=== PATIENT | female | born 1960 | race Caucasian/White ===

== ENCOUNTER 2018-06-01 18:16 | Emergency (ER) | payer OTHER ==
[~2018-06-01] VITALS: Ht 172.7 cm; Wt 81.2 kg
[~2018-06-01 18:16] MED LIST: ASPI-630 PO; AZEL50GE2 TP; DOXY50SY PO; FLUT9.9S NS; GLUC1TAB26 PO; LEVO25TA4 PO; LEVO330T PO; NAPR125O4 PO; OLME1TAB35 PO; OMEG300C PO; OMEP10CA3 PO
--- NOTE | 2018-06-01 18:20 | ED.ADGEN ---
Past History Past Medical History: Arthritis, Fibromyalgia, Other Past Surgical History: Other Adult General Chief Complaint Chief Complaint " I am having neck spasms... and pain... It bashir started two days ago... I really did nothing to hurt it...I did have surgery 10 yrs ago... and they put a plate in... I ve been having arthritis problems or tendon problems in my other joints.. shoulders, carpal tunnel.. and had to have my toe nail removed.. I am just falling apart since about age 49... I cant take a lot of meds...".. " Can I get fixed enough to watch fireworks...?.. " Took an old flexeril I had from previous surgery...its not seemed to help much..." HPI HPI Patient is a 57 year old female who presents with above hx and complaints neck pain. Pt. complaints of bilateral cervical muscle and trapezius muscle spasms. Pt. rates pain as 9/ 10. Prior cervical surgery 10 yrs ago. Pt.denies trauma, fever, cancer. No problems with vacation or urination. Has had increased complaints and bilateral carpal tunnel sites. 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 Patient is right-hand dominant. DTRs +2 at brachial and patella. Patient is ambulatory without problems. Does have pain on flexion and extension of neck. No hx travel or specific ill contacts. Pt. normally follows at [facility]. Review of Systems Review of Systems Constitutional: Denies fever or chills [] Eyes: Denies change in visual acuity, redness, or eye pain [] HENT: Denies nasal congestion or sore throat [] Respiratory: Denies cough or shortness of breath [] Cardiovascular: No additional information not addressed in HPI [] GI: Denies abdominal pain, nausea, vomiting, bloody stools or diarrhea [] : Denies dysuria or hematuria [] Musculoskeletal: Hx. of neck pain, bilateral shoulder pain, bilateral wrist pain, ect. Integument: Denies rash or skin lesions [] Neurologic: Denies headache, focal weakness or sensory changes [] Endocrine: Denies polyuria or polydipsia [] All other systems were reviewed and found to be within normal limits, except as documented in this note. Family History Family History Non-contributory Current Medications Current Medications Current Medications Medications (Trade) Dose Ordered Sig/Carline Start Time Stop Time Status Last Admin Dose Admin Methylprednisolone Acetate (DEPO-Medrol IM) 40 mg 1X ONCE 06/01/18 18:45 06/01/18 18:47 DC 06/01/18 18:53 40 MG Morphine Sulfate (Morphine 10mg Syringe) 10 mg 1X ONCE 06/01/18 18:45 06/01/18 18:47 DC 06/01/18 18:54 10 MG Orphenadrine Citrate (Norflex) 60 mg 1X ONCE 06/01/18 18:45 06/01/18 18:47 DC 06/01/18 18:54 60 MG See Nursing for home meds. Allergies Allergies Allergies Coded Allergies Type Severity Reaction Last Updated Verified Sulfa (Sulfonamide Antibiotics) Allergy Intermediate 06/01/18 Yes acetaminophen Allergy Intermediate 06/01/18 Yes bacitracin Allergy Intermediate 06/01/18 Yes diphenhydramine Allergy Intermediate 06/01/18 Yes gabapentin Allergy Intermediate 06/01/18 Yes neomycin Allergy Intermediate 06/01/18 Yes oxycodone Allergy Intermediate 06/01/18 Yes polymyxin B Allergy Intermediate 06/01/18 Yes Physical Exam Physical Exam Constitutional: Moderately acute distress, non-toxic appearance. [] HENT: Normocephalic, atraumatic, bilateral external ears normal, oropharynx moist, no oral exudates, nose normal. [] Eyes: PERRLA, EOMI, conjunctiva normal, no discharge. [] Neck:Decreased range of motion,and cervical muscle tenderness, no adenopathy, no stridor. [] Wearing a soft cervical collar for comfort and support. Old surgical scars. No mid line tenderness. + spasms paraspinal and trapezius muscles. Cardiovascular:Heart rate regular rhythm, no murmur [] Lungs & Thorax: Bilateral breath sounds equal at apex on auscultation [] Abdomen: Bowel sounds normal, soft, no tenderness, no masses, no pulsatile masses. Scar. Skin: Warm, dry, no erythema, no rash. [] Back: No tenderness, no CVA tenderness. [] Extremities: No tenderness, no cyanosis, no clubbing, ROM intact, no edema. Wrist splint Rt.. Old surgical scars wrists. Rt. 1st one in bandage- toe nail removal. Bilateral scars shoulders. Neurologic: Alert and oriented X 3, no gross motor function & sensory function deficits, no new focal deficits noted. []DTR + 2 patella and brachial. No reported saddle loss. Lt thumb numbness ( old. ) Psychologic: Affect anxious., , judgement normal, mood normal. [] Current Patient Data Vital Signs Vital Signs Date Time Temp Pulse Resp B/P (MAP) Pulse Ox O2 Delivery O2 Flow Rate FiO2 06/01/18 19:15 61 20 147/86 (106) 95 Room Air 06/01/18 18:16 97.0 EKG EKG [] Radiology/Procedures Radiology/Procedures Deferred radiographic evaluation at this time. Will need an MRI or myelogram to definitively evaluate cervical impingement[]. We will defer on follow-up with neurology/neurosurgery. Course & Med Decision Making Course & Med Decision Making Pertinent Labs and Imaging studies reviewed. (See chart for details). Patient use gentle massage. Ice packs. Tylenol for pain. Marked pain may use tramadol. Marked spasms may use Ativan 1 mg up to 3 times a day. May also try Flexeril 10 mg up to 3 times a day. Must follow-up with neurosurgery. Most likely need a MRI or myelogram to evaluate for cervical impingement. Suspect progression of degenerative joint changes particularly in joints above and below previous laminectomy.. Will treat with a depo of Medrol as an anti- inflammatory. [] Final Impression Final Impression 1. Cervical neuropathy 2. Acute cervical spasm[] Dragon Disclaimer Dragon Disclaimer This electronic medical record was generated, in whole or in part, using a voice recognition dictation system. JACKY CASTAÑEDA MD Jun 01, 2018 18:20
[2018-06-01] MEDS ORDERED: MORPHINE SULFATE 10 MG/ML SYRINGE. SQ ONE (18:45)
[2018-06-01] MEDS ORDERED: ORPHENADRINE CITRATE 60 MG/2 ML VIAL. IM ONE (18:45)
[2018-06-01] MEDS ORDERED: methylPREDNISolone ACETATE 40 MG/ML VIAL. IM ONE (18:45)
[2018-06-01] MEDS ORDERED: TRAM1TAB4 PO (18:48)
[2018-06-01] MEDS ORDERED: CYCL-331 PO (18:48)
[2018-06-01] MEDS ORDERED: LORA-254 PO (19:05)
[2018-06-01 19:15] VITALS: BP 147/86
== END 2018-06-01 19:15 | disposition home or self-care (01) ==
LOC: ER 18:16
DX: G54.2 Cervical root disorders, not elsewhere classified (principal); M54.2 Cervicalgia; M25.512 Pain in left shoulder; M25.531 Pain in right wrist; M25.532 Pain in left wrist; M19.90 Unspecified osteoarthritis, unspecified site; M79.7 Fibromyalgia; Z88.2 Allergy status to sulfonamides; Z88.6 Allergy status to analgesic agent; Z88.1 Allergy status to other antibiotic agents; Z88.8 Allergy status to other drugs, medicaments and biological substances
CPT/HCPCS: 96372; 99284; J1030; J2270; J2360

== ENCOUNTER → 2018-07-08 | Outpatient (CLI) | payer OTHER ==
[~2018-07-08] MED LIST changes: +CYCL-331 PO; +LORA-254 PO; +TRAM1TAB4 PO
[2018-07-08 13:17] LABS: BASO % 1 % (0-3); EOS # 0.2 x10^3/uL (0.0-0.7); EOS % 3 % (0-3); HEMATOCRIT 43.2 % (36.0-47.0); HEMOGLOBIN 14.6 g/dL (12.0-15.5); LYMPH # 2.4 x10^3/uL (1.0-4.8); LYMPH % 36 % (24-48); MEAN CORPUSCULAR HEMOGLOBIN 32 pg (25-35); MEAN CORPUSCULAR HGB CONC 34 g/dL (31-37); MEAN CORPUSCULAR VOLUME 94 fL (79-100); MONO # 0.6 x10^3/uL (0.0-1.1); MONO % 9 % (0-9); NEUT # 3.4 x10^3uL (1.8-7.7); NEUT % 51 % (31-73); PLATELET COUNT 225 x10^3/uL (140-400); RED BLOOD COUNT 4.62 x10^6/uL (3.50-5.40); RED CELL DISTRIBUTION WIDTH 13.1 % (11.5-14.5); WHITE BLOOD COUNT 6.6 x10^3/uL (4.0-11.0)
[2018-07-08 13:29] LABS: BACTERIA,URINE 0 /HPF (0-FEW); BILIRUBIN,URINE NEG (NEG); CLARITY,URINE CLEAR; COLOR,URINE STRAW; GLUCOSE,URINE NEG (NEG); NITRITE,URINE NEG (NEG); RBC,URINE 0 /HPF (0-2); SQUAMOUS EPITHELIAL CELL,UR OCC /LPF; UROBILINOGEN,URINE 0.2 mg/dL (0.2 mg/dL); WBC,URINE 0 /HPF (0-4)
[2018-07-08 13:38] LABS: ALBUMIN 3.9 g/dL (3.4-5.0); ALBUMIN/GLOBULIN RATIO 1.1 (1.0-1.7); CREATININE 0.7 mg/dL (0.6-1.0); GFR 85.9; TOTAL BILIRUBIN 0.5 mg/dL (0.2-1.0); TOTAL PROTEIN 7.5 g/dL (6.4-8.2)
== END | disposition home or self-care (01) ==
LOC: LAB 11:26
PROVIDERS: ATTEND Nurse Practitioner
DX: L71.8 Other rosacea (principal); Z79.899 Other long term (current) drug therapy; Z88.1 Allergy status to other antibiotic agents; Z88.2 Allergy status to sulfonamides; Z88.6 Allergy status to analgesic agent; Z88.8 Allergy status to other drugs, medicaments and biological substances
CPT/HCPCS: 36415; 80053; 81001; 85025

== ENCOUNTER → 2019-11-27 | Outpatient (CLI) | payer OTHER ==
[~2019-11-27] MED LIST changes: -OMEP10CA3 PO; +OMEP10CA4 PO
--- NOTE | 2019-11-27 10:14 | RAD ---
EXAM: Right foot, 3 views. HISTORY: Pain. COMPARISON: None. FINDINGS: 3 views of the right foot are obtained. There is no fracture, dislocation or subluxation. There is first metatarsal phalangeal joint space narrowing with subchondral sclerosis and marginal spurring. There is a corticated ossicle along the anterior talus, likely due to a chronic nonunited avulsion fracture fragment. There is a small plantar spur. There is minimal enthesopathy at the Achilles tendon insertion. IMPRESSION: 1. Mild first metatarsal phalangeal joint osteoarthritis. 2. Small plantar spur. Electronically signed by: Eloise Mata MD (11/27/2019 10:12 AM) [id number]
== END | disposition home or self-care (01) ==
LOC: PMG 07:33
PROVIDERS: ATTEND Physician Assistant Medical
DX: M19.071 Primary osteoarthritis, right ankle and foot (principal); M77.51 Other enthesopathy of right foot and ankle
CPT/HCPCS: 73630

== ENCOUNTER → 2020-07-18 | Outpatient (CLI) | payer OTHER ==
--- NOTE | 2020-07-23 16:14 | RAD ---
DATE: 07/18/2020 8:15 AM EXAM: MAMMO JIMENEZ SCREENING BILATERAL HISTORY: Screening COMPARISON: 08/15/2015, 02/26/2011 Bilateral CC and MLO views of the breasts were performed. Bilateral breast tomosynthesis was performed in CC and MLO projections. This study was interpreted with the benefit of Computerized Aided Detection (CAD). FINDINGS: Breast Density: SCATTERED The breast parenchyma shows scattered fibroglandular densities. Breast parenchyma level B No suspicious masses, microcalcifications or architectural distortion is present to suggest malignancy in either breast. The visualized axillae are unremarkable. IMPRESSION: No mammographic evidence of malignancy. BI-RADS CATEGORY: 1 NEGATIVE RECOMMENDED FOLLOW-UP: 12M 12 MONTH FOLLOW-UP Annual screening mammography is recommended, unless clinically indicated sooner based on symptoms or change in physical exam. PQRS compliance statement: Patient information was entered into a reminder system with a target due date for the next mammogram. Mammography is a sensitive method for finding small breast cancers, but it does not detect them all and is not a substitute for careful clinical examination. A negative mammogram does not negate a clinically suspicious finding and should not result in delay in biopsying a clinically suspicious abnormality. "Our facility is accredited by the [employer] Mammography Program."
== END | disposition home or self-care (01) ==
LOC: MAMMO 08:06
PROVIDERS: ATTEND Obstetrics & Gynecology
DX: Z12.31 Encounter for screening mammogram for malignant neoplasm of breast (principal)
CPT/HCPCS: 77063; 77067

== ENCOUNTER → 2021-03-20 | Outpatient (CLI) | payer OTHER ==
--- NOTE | 2021-03-20 13:00 | RAD ---
EXAM: Lumbar spine, 3 views. HISTORY: Pain. COMPARISON: None. FINDINGS: 3 views of the lumbar spine are obtained. There is mild retrolisthesis of L2 on L3 and L3 o n L4. There is multilevel endplate remodeling and disc space narrowing, primarily at the lumbosacral junction. There are multiple endplate Schmorl's nodes. There are surgical clips overlying the pelvis. IMPRESSION: Multilevel degenerative change, primarily at the lumbosacral junction. No acute osseous f inding. Electronically signed by: Eloise Mata MD (03/20/2021 12:57 PM) [id number]
== END ==
LOC: RAD 12:27
PROVIDERS: ATTEND Family Medicine
DX: M47.817 Spondylosis without myelopathy or radiculopathy, lumbosacral region (principal)
CPT/HCPCS: 72100

== ENCOUNTER → 2021-09-15 | Outpatient (CLI) | payer OTHER ==
--- NOTE | 2021-09-15 09:55 | RAD ---
XR FOOT_RIGHT 3 VIEWS Clinical indications: Reason: RIGHT 3RD and 4TH METATARSAL PAIN / Spl. Instructions: / History: Findings: No acute fracture or dislocation or osteolytic process is evident. Plantar and posterior s purs of the calcaneus are seen. No periosteal reaction is seen. IMPRESSION: No acute osseous abnormality is evident. Electronically signed by: Phan Monk MD (09/15/2021 9:53 AM) [id number]
== END ==
LOC: RAD 09:29
PROVIDERS: ATTEND Nurse Practitioner
DX: S90.121A Contusion of right lesser toe(s) without damage to nail, initial encounter (principal); M77.31 Calcaneal spur, right foot; X58.XXXA Exposure to other specified factors, initial encounter; Y93.89 Activity, other specified; Y92.89 Other specified places as the place of occurrence of the external cause; Y99.8 Other external cause status
CPT/HCPCS: 73630

== ENCOUNTER 2021-11-28 13:54 | Emergency (ER) | payer OTHER ==
[~2021-11-28] VITALS: Ht 172.7 cm; Wt 108.0 kg
[~2021-11-28 13:54] MED LIST changes: -CYCL-331 PO; +CYCL10TA19 PO
--- NOTE | 2021-11-28 14:28 | PHYS DOC ---
Past History Past Medical History: Arthritis, Fibromyalgia, Other Past Surgical History: Hysterectomy, Other Additional Past Surgical Histo: rotator cuff, carpell nasim, plate in neck, bladder sling. Alcohol Use: None Drug Use: None General Adult EDM: Chief Complaint: COUGH HPI: HPI: 61-year-old female presents with cough, congestion, fatigue. The patient has been sleeping in the basement lately and thinks that her symptoms could just be from airway irritation and dust. The patient is going to see family who have immune issues and wants to make sure she does not have a significant illness such as pneumonia or COVID-19. She is vaccinated against Covid but has not done her booster yet. She denies fever or chills. No significant shortness of breath. She does have some chest heaviness with no cardiac history. Review of Systems: Review of Systems: Constitutional: Denies fever or chills. Body aches, fatigue Eyes: Denies change in visual acuity HENT: Denies nasal congestion or sore throat Respiratory: Cough without shortness of breath Cardiovascular: Chest heaviness GI: Denies abdominal pain, nausea, vomiting, bloody stools or diarrhea : Denies dysuria Musculoskeletal: Denies back pain or joint pain Integument: Denies rash Neurologic: Denies headache, focal weakness or sensory changes Endocrine: Denies polyuria or polydipsia Lymphatic: Denies swollen glands Psychiatric: Denies depression or anxiety Allergies: Allergies: Allergies Coded Allergies Type Severity Reaction Last Updated Verified Sulfa (Sulfonamide Antibiotics) Allergy Intermediate 06/01/18 Yes acetaminophen Allergy Intermediate 06/01/18 Yes bacitracin Allergy Intermediate 06/01/18 Yes diphenhydramine Allergy Intermediate 06/01/18 Yes gabapentin Allergy Intermediate 06/01/18 Yes neomycin Allergy Intermediate 06/01/18 Yes oxycodone Allergy Intermediate 06/01/18 Yes polymyxin B Allergy Intermediate 06/01/18 Yes Physical Exam: PE: Constitutional: Well developed, well nourished, obese, no acute distress, non-toxic appearance. [] HENT: Normocephalic, atraumatic, bilateral external ears normal, oropharynx moist, no oral exudates, nose normal. [] Eyes: PERRLA, EOMI, conjunctiva normal, no discharge. [] Neck: Normal range of motion, no tenderness, supple, no stridor. [] Cardiovascular: Heart rate 74, regular rhythm, no murmur [] Lungs & Thorax: Bilateral breath sounds clear to auscultation [] Abdomen: Bowel sounds normal, soft, no tenderness, no masses, no pulsatile masses. [] Skin: Warm, dry, no erythema, no rash. [] Back: No tenderness, no CVA tenderness. [] Extremities: No tenderness, no cyanosis, no clubbing, ROM intact, no edema. [] Neurologic: Alert and oriented X 3, normal motor function, normal sensory function, no focal deficits noted. [] Psychologic: Affect normal, judgement normal, mood normal. [] Current Patient Data: Vital Signs: Vital Signs Date Time Temp Pulse Resp B/P (MAP) Pulse Ox O2 Delivery O2 Flow Rate FiO2 11/28/21 14:15 98.2 93 18 165/86 (112) 96 Room Air EKG: EKG: Sinus rhythm, rate 74, normal axis, no ST elevation or depression. [] Radiology/Procedures: Radiology/Procedures: [] Impressions: EXAMINATION: Chest radiograph. VIEWS: 1 COMPARISON: None INDICATION:61 years, Female, shortness of breath. FINDINGS: Normal cardiomediastinal silhouette. No focal consolidation. No pleural effusion or pneumothorax. No acute osseous process. IMPRESSION: No acute cardiopulmonary process. Electronically signed by: Danyell Gregg MD (11/28/2021 3:25 PM) [facility] DICTATED AND SIGNED BY: DANYELL GREGG MD DATE: 11/28/21 1524 CC: ROBERTA PIMENTEL DO; SARY MC MD ~MTH0 0 Heart Score: C/O Chest Pain: Yes HEART Score for Chest Pain: HEART Score for Chest Pain Response (Comments) Value History Slighlty/Non-Suspicious 0 ECG Normal 0 Age >45 - < 65 1 Risk Factors 1 or 2 Risk Factors 1 Troponin < Normal Limit 0 Total 2 Risk Factors: Risk Factors: DM, Current or recent (<one month) smoker, HTN, HLP, family history of CAD, obesity. Risk Scores: Score 0 - 3: 2.5% MACE over next 6 weeks - Discharge Home Score 4 - 6: 20.3% MACE over next 6 weeks - Admit for Clinical Observation Score 7 - 10: 72.7% MACE over next 6 weeks - Early Invasive Strategies Course & Med Decision Making: Course & Med Decision Making Pertinent Labs and Imaging studies reviewed. (See chart for details) The patient's EKG is unremarkable. Her labs are unremarkable. Her troponin is negative. Her chest x-ray is negative for pneumonia. This could be respiratory limitation due to allergens but could also be COVID-19. We have tested the patient and results are pending. She is stable for discharge at this time. [] Dragon Disclaimer: Dragon Disclaimer: This electronic medical record was generated, in whole or in part, using a voice recognition dictation system. Departure Departure: Impression: Primary Impression: Cough Additional Impression: Suspected 2019 novel coronavirus infection Disposition: HOME / SELF CARE / HOMELESS Condition: STABLE Referrals: SARY MC MD (PCP) Patient Instructions: Viral Syndrome Additional Instructions: You have been tested for or diagnosed with COVID-19. It is an infection caused b y a new type of coronavirus. COVID-19 will cause cold-like or mild flu symptoms in most. It can cause more severe symptoms like problems breathing in some. There is no treatment for COVID-19. The body will clear the infection over time. Self-care will help to ease discomfort. Steps to Take: Self-Care Rest as needed. Healthy habits may help you feel better. Steps include: Choose healthy foods including fruits and vegetables. Drink water throughout the day. Get plenty of sleep each night. If you smoke, try to quit. It may ease breathing. Avoid alcohol. Keep Others Healthy The virus can spread to others. Droplets are released every time you sneeze or cough. The droplets can get into the mouth, nose, or eyes of people near you and lead to infection. To lower the chances of spreading COVID-19 to others: Stay at home until your doctor has said it is safe to leave. If you tested p ositive this will mean staying isolated until both of the following are true: At least 7 days have passed since the start of illness. You are free of fever for at least 72 hours without the use of medicine. During this time: - Avoid public areas, events, or transportation. Do not return to work or school until your doctor has said it is safe to do so. - Call ahead if you need to go to a medical center. Let them know you may have COVID-19. It will help them guide you where to go. They may also ask you to wear a facemask when you come to the office. - If you call for emergency medical services, let them know you may have COVID- 19. While at home: - Try to avoid close contact with others. Stay about 6 feet away. - If possible, spend most of your time in a separate room from others. - Use a face mask if you will be in close contact with others such as sharing a room or vehicle. - Have someone wipe down common surfaces in the home. Use household welcome center attendant every day on areas like doorknobs, counters, or sinks. - Cough or sneeze into a tissue. Throw the tissue away right after use. If a tissue is not available, cough or sneeze into your elbow. - Wash your hands often. Wash them after sneezing or coughing. Use soap and water and wash for at least 20 seconds. Alcohol based hand beauty parlor cleaner can be used if soap and water is not available. - Do not prepare food for others. Avoid sharing personal items like forks, spoons, or toothbrushes. - Avoid close contact with pets while you are sick. There is no evidence of the virus passing to pets. This is a safety step until more is known about this virus. Isolation can be frustrating. Social interaction can help. Keep in touch with friends and family through phone and tech options. You can still interact with others in your home, just keep a safe distance of about 6 feet. Follow-up: Your doctors office will check in with you to see if there are any changes in your health. You may be asked to keep track of symptoms to share with them. They will also let you know when you are clear to be in public again. Problems to Look Out For: Contact your doctor if your recovery is not going as you expect. Get emergency care if you have problems such as: - Trouble breathing - Nonstop chest pain or pressure - Changes in awareness, confusion, or problems waking - Lips or face have bluish color - Worsening of symptoms If you think you have an emergency, call for emergency medical services right away. As taken from [facility] ROBERTA PIMENTEL DO Nov 28, 2021 14:28
--- NOTE | 2021-11-28 15:13 | EKG ---
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
[2021-11-28 15:27] LABS: BASO % 0 % (0-3); EOS # 0.1 x10^3/uL (0.0-0.7); EOS % 2 % (0-3); HEMATOCRIT 40.9 % (36.0-47.0); HEMOGLOBIN 13.8 g/dL (12.0-15.5); LYMPH # 1.8 x10^3/uL (1.0-4.8); LYMPH % 23 % (24-48); MEAN CORPUSCULAR HEMOGLOBIN 32 pg (25-35); MEAN CORPUSCULAR HGB CONC 34 g/dL (31-37); MEAN CORPUSCULAR VOLUME 94 fL (79-100); MONO # 0.8 x10^3/uL (0.0-1.1); MONO % 11 % (0-9); NEUT # 5.1 x10^3uL (1.8-7.7); NEUT % 64 % (31-73); PLATELET COUNT 233 x10^3/uL (140-400); RED BLOOD COUNT 4.36 x10^6/uL (3.50-5.40); RED CELL DISTRIBUTION WIDTH 13.2 % (11.5-14.5); WHITE BLOOD COUNT 7.9 x10^3/uL (4.0-11.0)
--- NOTE | 2021-11-28 15:28 | RAD ---
EXAMINATION: Chest radiograph. VIEWS: 1 COMPARISON: None INDICATION:61 years, Female, shortness of breath. FINDINGS: Normal cardiomediastinal silhouette. No focal consolidation. No pleural effusion or pneumothorax. No acute osseous process. IMPRESSION: No acute cardiopulmonary process. Electronically signed by: Nette Gregg MD (11/28/2021 3:25 PM) [facility]
[2021-11-28 15:29] LABS: ALBUMIN 3.8 g/dL (3.4-5.0); CHLORIDE 102 mmol/L (98-107); POTASSIUM 4.1 mmol/L (3.5-5.1); SODIUM 137 mmol/L (136-145)
[2021-11-28 15:37] LABS: INFLUENZA A PATIENT NEGATIVE (NEGATIVE); INFLUENZA B PATIENT NEGATIVE (NEGATIVE)
[2021-11-28 15:40] LABS: ANION GAP 8 (6-14); CARBON DIOXIDE 27 mmol/L (21-32)
[2021-11-28 16:05] LABS: BLOOD UREA NITROGEN 10 mg/dL (7-20); BUN/CREATININE RATIO 13 (6-20); CALCIUM 9.2 mg/dL (8.5-10.1); CREATININE 0.8 mg/dL (0.6-1.0); GFR 72.7; GLUCOSE 119 mg/dL (70-99)
[2021-11-28 16:21] VITALS: BP 145/83
== END 2021-11-28 17:14 | disposition home or self-care (01) ==
LOC: ER 13:54
DX: U07.1 COVID-19 (principal); M19.90 Unspecified osteoarthritis, unspecified site; M79.7 Fibromyalgia; Z88.2 Allergy status to sulfonamides; Z88.1 Allergy status to other antibiotic agents; Z88.5 Allergy status to narcotic agent; Z88.8 Allergy status to other drugs, medicaments and biological substances
CPT/HCPCS: 71045; 80053; 84484; 85025; 87804; 93005; 99285; C9803; U0003